=== PATIENT | male | born 1950 | race Caucasian/White ===

== ENCOUNTER → 2020-05-05 11:31 | Outpatient (CLI) | payer MEDICARE, SELFPAY ==
--- NOTE | ~2020-05-05 | XR_ITS ---
EXAMINATION: XR chest 2V EXAM DATE: 05/05/2020 12:26 INDICATION: R05 - Cough . TECHNIQUE: Frontal and lateral projections of the chest obtained and reviewed. There is no prior pepito dy for comparison. FINDINGS: The lungs are clear. There are no pleural effusions. The cardiomediastinal silhouette is within normal limits. There is no pneumothorax suspected. Patient has diffuse idiopathic skeletal h yperostosis (DISH). IMPRESSION: No acute cardiopulmonary findings. Reviewed, dictated and finalized at location A. [employer]
== END ==
PROVIDERS: PCP Internal Medicine; Visit Provider Internal Medicine
DX: R05 Cough (principal)
CPT/HCPCS: 71046

== ENCOUNTER 2020-05-26 08:32 | Outpatient (CLI) | payer MEDICARE, SELFPAY ==
--- NOTE | 2020-05-26 08:38 | ECHO_ITS ---
Patient Info Name: Elroy Garcia Age: 69 years : 1950 Gender: Male Ht: 66 in Wt: 185 lbs BSA: 2.00 m2 HR: 87 bpm BP: 191 / 101 mmHg Technical Quality: Good Exam Date: 05/26/2020 9:08 AM Exam Location: [facility] Patient Status: Outpatient Admit Date: 05/26/2020 Staff Ordering Physician: Yair Monge DO Certified Professional Midwife: Dell Milton RDCS, RT Attending Provider: Yair Monge DO Referring Physician: Saleem BUITRAGO; Exam Type: CA echo doppler color flow Study Info Indications I10 - Essential (primary) hypertension Complete two-dimensional, color flow and Doppler transthoracic echocardiogram is performed. Strain analysis performed. Summary 1. Complete two-dimensional, color flow and Doppler transthoracic echocardiogram is performed. 2. Left ventricular chamber dimension is normal. 3. Left ventricular systolic function is normal, estimated at 60-65%. 4. The left ventricular diastolic function is grade I diastolic dysfunction. 5. E/e' 7 is not elevated. 6. Global longitudinal strain is normal at -17.0%. Left Ventricle E/e' 7 is not elevated. Global longitudinal strain is normal at -17.0%. Left ventricular chamber dimension is normal. Left ventricular systolic function is normal, estimated at 60-65%. The left ventricular diastolic function is grade I diastolic dysfunction. Right Ventricle Right ventricular chamber dimension is normal. Right ventricular systolic function is normal. Left Atria Left atrial chamber dimension is normal. Right Atria Right atrial chamber dimension is normal. Aortic Valve The aortic valve is trileaflet. There is no aortic valve stenosis. There is no aortic valve regurgitation. Pulmonic Valve There is no pulmonic regurgitation. Mitral Valve There is no mitral valve stenosis. There is no mitral valve regurgitation. Tricuspid Valve There is no tricuspid valve regurgitation. Pericardium/Pleural There is no pericardial effusion. Inferior Vena Cava Normal inferior vena cava with >50% collapse upon inspiration consistent with normal right atrial pressure, 5 mmHg. Aorta The aortic root size at the sinus of Valsalva is normal. Left Ventricular Outflow Tract Name Value Normal LVOT 2D LVOT Diameter 1.9 cm LVOT Doppler LVOT Peak Gradient 4 mmHg LVOT Mean Gradient 2 mmHg LVOT VTI 23 cm LVOT VTI/AV VTI Ratio 1.0 LVOT Stroke Volume 63 ml LVOT CO 5.2 l/min LVOT CI 2.6 l/min/m2 Mitral Valve Name Value Normal MV Doppler MV Decel Cidra 437 cm/s2 MV PHT 57 ms MV Area (PHT)
== END 2020-05-26 08:33 | disposition home or self-care (01) ==
PROVIDERS: PCP Internal Medicine; Visit Provider Internal Medicine
DX: R05 Cough (principal); R06.00 Dyspnea, unspecified; I10 Essential (primary) hypertension
CPT/HCPCS: 93306

== ENCOUNTER 2020-11-11 18:48 | Emergency (ER) | payer MEDICARE, SELFPAY ==
--- NOTE | ~2020-11-11 | XR_ITS ---
EXAMINATION: XR shoulder RT min 2V DATE: 11/11/2020 19:07 INDICATION: Right shoulder pain. TECHNIQUE: 4 views of right shoulder were obtained. COMPARISON: None. FINDINGS: Bone alignment is normal. No fracture. There is mild osteoarthritis of glenohumeral joint a nd acromioclavicular joint. IMPRESSION: 1. Mild polyarticular osteoarthritis. Reviewed, dictated and finalized at location A.
[2020-11-11 18:54] VITALS: BP 180/89; PULSE 84; RESP 16; TEMP 36.7; O2SAT 98
--- NOTE | 2020-11-11 19:17 | PC.NURSE ---
pt c/o right shoulder pain worse with movement after slipping on wet grass earlier in the week. pt reports prior injury to right shoulder. has been wearing a shoulder immobilizer but reports no better.
--- NOTE | 2020-11-11 19:33 | ED.UPPEXIN ---
HPI - Extremity Injury (Upper) History of Present Illness HPI narrative: 70 yo male w/ h/o rotator cuff repair presents to the ED c/o a shoulder injury. He reports that he slipped and fell a couple of days ago. He caught himself with his right arm. He has had pain over the anterior and laterla deltoid since that time. The pain limits his ability to abduct and flex the shoulder. He has been using a sling, which helps with the pain. He previously had a rotator cuff repair on the same shoulder. No weakness, numbness, wound. Related Data Home Medications Medication Instructions Recorded Confirmed acetaminophen 650 mg PO Q12H 02/18/19 11/17/20 aspirin 325 mg PO DAILY 02/18/19 11/17/20 cholecalciferol (vitamin D3) 5,000 unit PO DAILY 02/18/19 11/17/20 [Vitamin D3] coenzyme Q10 [CoQ-10] 100 mg PO DAILY 02/18/19 11/17/20 diphenhydramine HCl [Benadryl] 02/18/19 11/17/20 flaxseed oil 1,000 mg PO DAILY 02/18/19 11/17/20 glucosamine sulfate [Glucosamine] mg 02/18/19 11/17/20 loratadine 10 mg PO DAILY 02/18/19 11/17/20 magnesium 200 mg PO DAILY 02/18/19 11/17/20 multivitamin [Multiple Vitamins] tablet 02/18/19 11/17/20 vitamin E 400 unit PO DAILY 02/18/19 11/17/20 omega 3,6,9 combination no.7 92 mg mg PO 10/18/19 11/17/20 (43 mg-22 [id number]) chew tablet Allergies Allergy/AdvReac Type Severity Reaction Status Date / Time Penicillins Allergy Unknown Hives Verified 11/14/20 15:27 Sulfa (Sulfonamide Allergy Unknown Unknown Verified 11/14/20 15:27 Antibiotics) Review of Systems Review of Systems: All systems reviewed & are unremarkable except as noted in HPI and below PMFSH Past Medical History Medical History Asthma Basal cell carcinoma GERD (gastroesophageal reflux disease) Hypertension Obesity Surgical History Surgical History (Updated 11/20/20 @ 16:23 by Elmer Major MD) S/P rotator cuff repair Family History Family History Father Family history of Alzheimer's disease Social History Social History Smoking status: Never smoker Second hand tobacco smoke exposure: No Alcohol intake: current Drinks per week: 5 Substance use: never Gender identity (if verbalized by the patient): Male Exam Const: General: healthy appearing, no acute distress and alert Nutritional Appearance: well nourished Orientation/consciousness: patient oriented x3 HENMT: Head: normal to inspection Neck: Neck: normal visual inspection Chest: Chest palpation & inspection: normal inspection of the chest and no tenderness Resp: Effort & Inspection: normal respiratory effort Auscultation: clear to auscultation bilaterally Cardio: Rate: regular rate Rhythm: regular rhythm Skin: General skin exam: normal color Wounds: no wounds Neuro: General: patient oriented x3, moves all extremities and no focal motor deficits Speech: normal speech Gait exam (Neuro): Normal gait present Other: Motor and sensory intact in RUE Extrem: Other: Tenderness over right anterior deltoid. Pain with flexion, abduction, external rotation of the right shoulder. Course Vital Signs Vital signs: Vital Signs Temperature 36.7 C 11/11/20 18:54 Pulse Rate 84 11/11/20 18:54 Respiratory Rate 16 11/11/20 18:54 Blood Pressure 180/89 H 11/11/20 18:54 Pulse Oximetry 98 11/11/20 18:54 Temperature 36.7 C 11/11/20 18:54 Pulse Rate 74 11/11/20 20:30 Respiratory Rate 16 11/11/20 20:30 Blood Pressure 161/92 H 11/11/20 20:30 Pulse Oximetry 95 11/11/20 20:30 MDM - Extremity Injury (Upper) MDM Narrative Medical decision making narrative: X-ray negative. Exam concerning for rotator cuff injury. Joint stable. Imaging Data Radiologist's impression: ITS Impressions Shoulder X-Ray 11/11/20 19:10 IMPRESSION: 1. Mild polyarti
[2020-11-11 20:30] VITALS: BP 161/92; PULSE 74; RESP 16; O2SAT 95
== END 2020-11-11 20:07 | disposition home or self-care (01) ==
PROVIDERS: Emergency Provider Emergency Medicine; PCP Internal Medicine
DX: S46.001A Unspecified injury of muscle(s) and tendon(s) of the rotator cuff of right shoulder, initial encounter (principal); J45.909 Unspecified asthma, uncomplicated; K21.9 Gastro-esophageal reflux disease without esophagitis; Z85.828 Personal history of other malignant neoplasm of skin; I10 Essential (primary) hypertension; E66.9 Obesity, unspecified; Z68.28 Body mass index [BMI] 28.0-28.9, adult; M19.011 Primary osteoarthritis, right shoulder; Z79.82 Long term (current) use of aspirin; W01.0XXA Fall on same level from slipping, tripping and stumbling without subsequent striking against object, initial encounter
CPT/HCPCS: 73030; 99283

== ENCOUNTER 2020-11-20 07:35 | Outpatient (CLI) | payer MEDICARE, SELFPAY ==
--- NOTE | ~2020-11-20 | MR_ITS ---
EXAMINATION: MR shoulder RT wo con DATE: 11/20/2020 08:41 INDICATION: Right shoulder pain post recent fall TECHNIQUE: Magnetic resonance imaging (MRI) of the right shoulder was performed without intravenous c ontrast. Sequences included axial PD-weighted FS FSE, coronal oblique PD-weighted FS FSE, coronal obl ique T2-weighted FS FSE, sagittal PD-weighted FS FSE, and sagittal T1-weighted SE. COMPARISON: None. FINDINGS: Coracoacromial arch: The acromion undersurface is curved in morphology (type II) with small anterior subacromial spur. Cor acoacromial ligament is normal. Mild to moderate acromioclavicular osteoarthritis. Rotator cuff: Mild supraspinatus and severe infraspinatus tendinopathy with near complete full-thickness tear of clifton th tendons. There appear to be a few intact fibers of the anterior most supraspinatus tendon and post erior most infraspinatus tendons. The tear occurs near the greater tuberosity footplate where there i s residual small amount of patchy frayed tendon material. The medial supraspinatus tear margin is ret racted approximately 3.5 cm medially to nearly the level of the free edge of the labrum. Mild tendino sheldon of the teres minor tendon without discrete tear. Moderate distal subscapularis tendinopathy wit hout discrete tear. Severe fatty atrophy of the teres minor muscle belly. No evident impinging lesion at the quadrilateral space along the course of the axillary nerve. Remainder of the rotator cuff mus culature appears relatively preserved including the supraspinatus and infraspinatus muscle bellies. T here is feathery muscular edema in the distal infraspinatus likely related to the tendon tear and sug gesting a relatively recent injury. Biceps tendon, glenoid labrum and glenohumeral cartilage: Long head of the biceps tendon is normal. Is degenerative tearing at the anteroinferior to inferior g lenoid labrum with small marginal osteophyte at the base of the labrum at the 6:00 position. There is mild degenerative fraying along the free edge of the posterior superior to posterior inferior labrum . Deep partial-thickness cartilage loss with subtle underlying cortical irregularity and minimal suba rticular edema at the anterosuperior aspect of the humeral head. Mild partial-thickness cartilage los s with smooth chondral surface at the cephalad half of the glenoid. Fluid: Physiologic amount of fluid in the glenohumeral joint and biceps tendon sheath. No loose osteochondra l bodies. There is however extension of fluid through the full-thickness rotator cuff tear into the s ubacromial/subdeltoid and subcoracoid bursae. Bones: Mild cephalad subluxation of the humeral head with respect to the glenoid with narrowing of the subac romial space resulting from the full-thickness rotator cuff tear. No fracture or pathologic marrow re placing process. IMPRESSION: 1. Full-thickness tear near the superior and middle facet footplates involving nearly the entire supr aspinatus and infraspinatus tendons but without significant fatty atrophy suggesting recent injury. 2. Severe fatty atrophy of the teres minor muscle belly with mild tendinopathy without discrete tear which of indeterminate etiology with no evident impinging lesion along the course of the axillary ner ve. 3. Moderate subscapularis tendinopathy without discrete tear. 4. Mild glenohumeral osteoarthritis with degenerative tearing at the anteroinferior to inferior labru m and along the free edge of the posterior superior to posterior inferior labrum. 5. Mild to moderate acromioclavicular osteoarthritis. Reviewed, dictated and finalized at location A. IMPRESSION: 1. Full-thickness tear near the superior and middle facet footplates involving nearly the entire supraspinatus and infraspina
== END 2020-11-20 07:36 | disposition home or self-care (01) ==
PROVIDERS: PCP Internal Medicine; Visit Provider Physician Assistant
DX: M19.011 Primary osteoarthritis, right shoulder (principal); S43.491A Other sprain of right shoulder joint, initial encounter; X58.XXXA Exposure to other specified factors, initial encounter
CPT/HCPCS: 73221

== ENCOUNTER 2020-12-20 15:01 | Outpatient (CLI) | payer MEDICARE, SELFPAY ==
--- NOTE | ~2020-12-20 | CT_ITS ---
EXAMINATION: CT shoulder RT wo con DATE: 12/20/2020 15:11 INDICATION: Right shoulder arthropathy presenting with right shoulder pain post recent fall TECHNIQUE: High resolution computed tomography (CT) of the right shoulder was performed without intra venous contrast. Additional sagittal and coronal reconstructions were performed. Automated exposure c ontrol and iterative reconstruction technique were employed. The dose-length product was 466.68 mGy-c m. COMPARISON: Right shoulder MRI dated 11/20/2020 FINDINGS: Again seen is cephalad subluxation of the humeral head with respect to the glenoid with narrowing of the subacromial space consistent with previous noted right rotator cuff tear. No acute fracture. Mild to moderate right acromioclavicular osteoarthritis and mild osteoarthritis at the right glenohumeral joint with small marginal osteophytes about the glenoid. Small subacromial spur. No glenohumeral [place] nt effusion. Again seen is marked fatty atrophy of the right teres minors muscle belly. No other asym metric muscular atrophy of the right shoulder girdle. Moderate to severe lower cervical spondylosis. There are bridging osteophytes at multiple levels in the thoracic spine, consistent with diffuse idio pathic skeletal hyperostosis (DISH). The visualized portions of the right lung are clear. No patholog ically enlarged lymphadenopathy at the right axilla, right hilum or visualized mediastinum. IMPRESSION: 1. Mild glenohumeral osteoarthritis with cephalad subluxation of the humeral head and narrowing of th e subacromial space consistent with previously noted rotator cuff tear. See prior MRI report for furt her detail. 2. Severe fatty atrophy of the teres minor muscle belly which is of indeterminate etiology. 3. Mild to moderate acromioclavicular osteoarthritis. Reviewed, dictated and finalized at location A. IMPRESSION: 1. Mild glenohumeral osteoarthritis with cephalad subluxation of the humeral he ad and narrowing of the subacromial space consistent with previously noted rota tor cuff tear. See prior MRI report for further detail. 2. Severe fatty atrophy of the teres minor muscle belly which is of indetermina te etiology. 3. Mild to moderate acromioclavicular osteoarthritis.
== END 2020-12-20 15:02 | disposition home or self-care (01) ==
LOC: ANHIMG 15:03
PROVIDERS: PCP Internal Medicine; Visit Provider Orthopaedic Surgery
DX: M19.011 Primary osteoarthritis, right shoulder (principal)
CPT/HCPCS: 73200

== ENCOUNTER 2021-01-17 13:51 | Outpatient (CLI) | payer MEDICARE, SELFPAY ==
--- NOTE | 2021-01-17 14:47 | ECG_ITS ---
Measurements Intervals [place] Rate: 73 P: 59 FL: 145 QRS: 17 QRSD: 105 T: 31 QT: 361 QTc: 399 Interpretive Statements SINUS RHYTHM NORMAL ECG Electronically Signed On 01-17-2021 15:18:13 CDT by Chandra Medrano D.O.
[2021-01-17 15:15] LABS: Basophils Absolute Auto 0.1 K/mm3 (0.0-0.1); Basophils Percent Auto 0.7 % (0.2-1.2); Eosinophils Absolute Auto 0.6 K/mm3 (0-0.3); Eosinophils Percent Auto 7.7 % (0-4.4); Hematocrit 51.4 % (42.0-52.0); Hemoglobin 17.7 g/dL (14.0-18.0); Immature Granulocyte Absolute 0.02 K/mm3 (0.00-0.031); Immature Granulocyte Percent A 0.3 % (0-0.5); Lymphocytes Absolute Auto 2.21 K/mm3 (0.9-3.2); Lymphocytes Percent Auto 29.8 % (18.3-44.2); Mean Corpuscular HGB Conc 34.4 g/dl (32-36); Mean Corpuscular Hemoglobin 33.5 pg (26-34); Mean Corpuscular Volume 97.3 fl (80-100); Mean Platelet Volume 9.6 fl (7.4-10.4); Monocytes Absolute Auto 0.7 K/mm3 (0.1-0.6); Monocytes Percent Auto 9.8 % (2.6-8.5); Neutrophils Absolute Auto 3.8 K/mm3 (1.3-6.7); Neutrophils Percent Auto 51.7 % (45.5-73.1); Platelet Count Result 183 k/mm3 (150-375); Red Blood Count 5.28 M/mm3 (4.6-6.20); Red Cell Distribution Width 11.9 % (11.5-14.5); White Blood Count 7.4 K/mm3 (4.5-10.0)
== END 2021-01-17 13:52 | disposition home or self-care (01) ==
PROVIDERS: PCP Internal Medicine; Visit Provider Orthopaedic Surgery
DX: Z01.818 Encounter for other preprocedural examination (principal); M12.811 Other specific arthropathies, not elsewhere classified, right shoulder; I10 Essential (primary) hypertension
CPT/HCPCS: 36415; 85025; 87081; 93005

== ENCOUNTER 2021-02-05 00:35 | Day surgery (SDC) | payer MEDICARE, SELFPAY ==
[2021-01-17 14:12] VITALS: BP 221/113; PULSE 82; RESP 20; TEMP 36.7; O2SAT 95; BMI 31.4
[2021-02-05] VITALS (11 sets, daily range): BP systolic 131–163; BP diastolic 55–82; PULSE 70–116; RESP 14–24; TEMP 36.3–37; O2SAT 91–100
--- NOTE | ~2021-02-05 | XR_ITS ---
XR shoulder RT min 2V DATE: 02/05/2021 16:16 INDICATION: Reverse total shoulder joint replacement TECHNIQUE: 4 portable views of the right shoulder COMPARISON: 12/20/2020 CT right shoulder 11/11/2020 right shoulder FINDINGS: Status post right reverse glenohumeral joint arthroplasty. There is normal alignment at the arthroplasty. No fracture or dislocation is evident. Normal alignment at the acromioclavicular joint . IMPRESSION: Right glenohumeral reverse arthroplasty Reviewed, dictated and finalized at location A.
[2021-02-05] MEDS: ACETAMINOPHEN 500 MG TABLET 1000 MG PO (10:45)
[2021-02-05] MEDS: LACTATED RINGERS 1,000 ML 30 ML IV CONT (11:00)
--- NOTE | 2021-02-05 11:14 | WPDANESEPPF ---
Anes - Initial Pre Proc Eval Procedure: Operation Date: 02/05/21 12:00 Proposed Procedures p Right Reverse Total Shoulder Arthroplasty - Dago Nunez MD Date/Time: 02/05/21 11:14 Surgeon: Dago Nunez MD Pre Op Diagnosis: right rotator cuff arthropathy Patient Data Age: 70 Gender: M Height: 1.68 m Weight: 87.2 kg Last Vital Signs Temp 36.3 C L 02/05/21 10:30 Pulse 70 02/05/21 10:30 Resp 14 02/05/21 10:30 BP 159/78 H 02/05/21 10:30 Pulse Ox 100 02/05/21 10:30 Allergies Allergy/AdvReac Type Severity Reaction Status Date / Time Penicillins Allergy Intermediate Hives, RASH Verified 02/05/21 10:32 Sulfa (Sulfonamide Allergy Intermediate Rash Verified 02/05/21 10:32 Antibiotics) Home Medications Medication Instructions Recorded Confirmed Type cholecalciferol (vitamin D3) 5,000 unit PO DAILY 02/18/19 02/05/21 History [Vitamin D3] coenzyme Q10 [CoQ-10] 100 mg PO DAILY 02/18/19 02/05/21 History diphenhydramine HCl [Benadryl] 25 mg PO BID PRN 02/18/19 02/05/21 History glucosamine sulfate [Glucosamine] 500 mg PO DAILY 02/18/19 02/05/21 History loratadine 10 mg PO DAILY 02/18/19 02/05/21 History multivitamin [Multiple Vitamins] 1 tablet PO DAILY 02/18/19 02/05/21 History vitamin E 400 unit PO DAILY 02/18/19 02/05/21 History omega 3,6,9 combination no.7 92 mg 92 mg PO DAILY 10/18/19 02/05/21 History (43 mg-22 [id number]) chew tablet albuterol sulfate 90 mcg/actuation 2 inh INHALATION Q4-6H PRN #18 g 09/18/20 02/05/21 Rx aerosol inhaler atorvastatin 20 mg PO HS 01/17/21 02/05/21 History azelastine 2 spray INTRANASAL Q12H PRN 01/17/21 02/05/21 History diphenhydramine-acetaminophen 1 tablet PO HS PRN 01/17/21 02/05/21 History [Tylenol PM Extra Strength] fluticasone propionate [Flonase] 2 spray INTRANASAL DAILY 01/17/21 02/05/21 History guaifenesin [Mucinex] 600 mg PO Q12H PRN 01/17/21 02/05/21 History omeprazole 20 mg PO DAILY PRN 01/17/21 02/05/21 History potassium 99 mg PO DAILY 01/17/21 02/05/21 History fexofenadine 180 mg tablet 180 mg PO DAILY 01/19/21 02/05/21 History flaxseed oil 1,000 mg capsule 1,300 mg PO DAILY cap 01/19/21 02/05/21 History losartan 50 mg tablet 50 mg PO DAILY #90 tablet 01/19/21 02/05/21 Rx magnesium 200 mg tablet 400 mg PO DAILY tablet 01/19/21 02/05/21 History methyl inh INTRANASAL 01/19/21 02/02/21 History tnfuakzdyl-dvczwol-jhdwqpi-[place] fir needle oil nasal inhalr propylene glycol 0.6 % eye drops 1 drp EACH EYE DAILY 01/19/21 02/05/21 History montelukast 10 mg tablet 10 mg PO DAILY #90 tablet 02/01/21 02/05/21 Rx Patient hx anesthesia problems: none Family hx anesthesia problems: none Results Review: All pre-operative results and documents have been reviewed as part of the pre-operative evaluation. [facility] Past Medical History Medical History Asthma Basal cell carcinoma GERD (gastroesophageal reflux disease) Hypertension Obesity Surgical History Surgical History S/P rotator cuff repair Family History Family History Father Family history of Alzheimer's disease Social History Social History Smoking status: Never smoker Second hand tobacco smoke exposure: No Alcohol intake: current Drinks per week: 5 Substance use: never Living arrangements: with family Additional living arrangements comments: Gender identity (if verbalized by the patient): Male Spiritual care concerns: No Anes - Eval Final PreProcedure Day of Procedure 02/05/21 11:14 Patient weight: obese Heart: regular rate and rhythm Lungs: clear to auscultation Airway: Mallampati scale class II Neurological: alert and oriented Last oral intake: >/= 8 hours ASA classification: III Emergent: no Anesthetic
[2021-02-05] MEDS: TRANEXAMIC ACID 1,000MG/ISO100 1,000 MG/100 ML BAG 200 MG IVPB (11:44)
--- NOTE | 2021-02-05 11:59 | WPDHPUPDATE1 ---
History and Physical Update Update Date/Time: 02/05/21 11:59 History and Physical has been reviewed, including an updated exam of the patient. There are NO changes in the patient's condition. Risks, benefits, and alternatives have been discussed and questions answered. Patient agrees to proceed with procedure.
[2021-02-05] MEDS: ceFAZolin 2 GM/D5W 50 ML 2 GM/50 ML BAG IVPB ×2 (12:02→20:36)
--- NOTE | 2021-02-05 12:05 | WPDANESPNB ---
Anes - Peripheral Nerve Block Date/Time: 02/05/21 12:05 I have discussed with the patient/family/POA the placement of a peripheral nerve block for post-operative pain management, including associated risks, benefits, complications, and side effects. Alternative methods of post-operative analgesia were detailed. Questions were solicited and answers provided to the satisfaction of the patient/family/POA. Time-Out: A pre-procedural Time-Out was completed immediately before starting the procedure and confirmed: Patient Identification, Site, Procedure, Patient Position and the Availability of Requisite Equipment. Clinical Indications: Acute post-operative pain management requested by the operative surgeon. Nerve Block Insertion Note Anes-nerve block: interscalene right Patient position: supine Skin prep: chlorhexidine Needle: 22 gauge, stimulating, insulated echogenic needle. Needle length: 50 mm Technique: ultrasound Injectate: bupivacaine 0.5% with epi 5 mcg/ml (30cc no epi) and dexamethasone (mg) (8) Observations: tolerated well Complications: none Procedure start time:: 1155 Procedure end time:: 1202
[2021-02-05] MEDS: VANCOMYCIN HCL 1,000 MG VIAL 1000 MG TOPICAL (14:47)
--- NOTE | 2021-02-05 16:02 | W.PM.PROC2 ---
Procedure Note - Detailed Date of Procedure 02/05/21 Pre-op Diagnosis right rotator cuff arthropathy Post-op Diagnosis same Procedure Performed Right reverse total shoulder arthroplasty. Surgeon Dago Nunez MD Remote Control Mirror Installer Tammy Espana PA-C Anesthesia general and regional Findings Massive, chronic rotator cuff tear. Minimal glenoid deformity. Excellent bone quality. Description of Procedure The patient was given an interscalene block in the preoperative area. Preoperative antibiotics were given. The patient was transferred to the operating room and a general anesthetic was administered. The beach chair position was used at 40 degrees. All bony prominences were padded. The head was carefully stabilized on the [facility] head gauge unit operator. A sterile prep and drape was performed in the usual manner with ChloraPrep. A longitudinal incision was created at the anterior shoulder just lateral to the deltopectoral interval. Careful dissection was performed to expose the interval and protect the cephalic vein. The vein was retracted medially. The upper border of the pectoralis was released. Anterior circumflex vessel branches were suture ligated. The biceps was tenodesed. A subscapularis tenotomy was performed. The inferior capsule was released, exposing the humeral head. Osteophytes were removed. Care was taken to stay on bone to protect the axillary nerve. The anatomic head cut was taken with the oscillating saw. The broach was inserted. The neck anteversion and inclination were carefully assessed. The cut protector was placed, and attention was turned to the glenoid. Retractors were placed. Releases were carried out for exposure. The subscapularis was mobilized, the inferior capsule and long head of triceps released, and the superior and middle glenohumeral ligaments released as well. Labral tissue was resected as needed. The guide pin was placed at the center of the glenoid. Minimal reaming was used to accomplish a flat surface without violating the subchondral bone. Slight version correction according to preoperative templating (anteversion and inferior tilt). The boss, and central screw were drilled. The real component impacted and the central screw drilled and placed. Supplemental locking screws were placed superiorly and inferiorly. The glenosphere was impacted into the taper. The humeral components were trialed. The real humeral stem and tray, and insert were impacted into position. The shoulder was copiously irrigated periodically with pulsatile lavage. 1 g of vancomycin powder placed in the wound. 30 mL of anesthetic cocktail injected in the periarticular tissues. The shoulder was reduced and stability confirmed. The subscapularis was repaired with multiple 5. Ethibond suture. The biceps tenodesis was incorporated with the pectoralis tendon repair. The deltopectoral space was reapproximated with number 2 Vicryl. The remained tissue was closed with 0 Quill and 2-0 Quill running suture and steri-strips. A sterile dressing and shoulder immobilizer was placed. The patient was transferred to the recovery room. Physician obstetric assistant, Tammy Espana PA-C, required for surgery; including patient positioning, draping, tissue retraction, maintaining instrument position, wound closure, and dressing placement. Implants Shoulder Innovations; reverse shoulder glenoid base plate 24 mm angle 0? length 15 mm. Offset glenosphere 33 mm diameter eccentricity 0 offset +6 mm. Humeral short stem 28 mm x 6 mm size 0. Neutral humeral bearing diameter 33 mm lateral 0 mm angle 0?. Humeral tray diameter 38 mm offset 0 mm. Estimated Blood Loss 150 Drains No Packing No Pathology none sent Complications No immediate complications Condition stable Disposition PACU
--- NOTE | 2021-02-05 16:42 | SUR.PHASEI ---
1997 sbar faxed floor notified
--- NOTE | 2021-02-05 17:08 | PC.NURSE ---
This patient, Elroy Garcia, was admitted to Medical Room 253-01. Patient/family oriented to hospital policies and general routines including ID bracelet, bed and alarms, visiting hours, pain management, procedures, bathroom and other care routines, personal items, smoking policy, room service/diet, and visiting hours. Information on how to activate the Rapid Response Team has been discussed. Patient/Family are encouraged to report perceived risks to care and to ask questions if they do not understand what they are told or what they should do.
[2021-02-05] MEDS: ATORVASTATIN 20 MG TABLET PO (20:36)
[2021-02-06 00:11] VITALS: BP 107/57; PULSE 102; RESP 18; TEMP 37; O2SAT 93
[2021-02-06] MEDS: ASPIRIN 81 MG ENTERIC TABLET PO (04:19)
[2021-02-06] MEDS: ceFAZolin 2 GM/D5W 50 ML 2 GM/50 ML BAG IVPB ×2 (04:19→11:12)
[2021-02-06 05:06] VITALS: BP 135/71; PULSE 100; RESP 16; TEMP 36.9; O2SAT 93
[2021-02-06] MEDS: LORATADINE 10 MG TABLET PO (08:29)
[2021-02-06] MEDS: oxyCODONE HCL (*CRX) 5 MG TAB IR PO (08:29)
[2021-02-06] MEDS: MONTELUKAST SODIUM 10 MG TABLET PO (08:29)
[2021-02-06] MEDS: MAGNESIUM OXIDE 400 MG TABLET PO (08:29)
[2021-02-06] MEDS: LOSARTAN POTASSIUM 50 MG TABLET PO (08:29)
[2021-02-06 09:46] VITALS: BP 119/66; PULSE 100; RESP 16; TEMP 36.5; O2SAT 95
== END 2021-02-06 12:27 | disposition home or self-care (01) ==
LOC: ANHSURGERY 10:11 → ANH2MED 16:53
PROVIDERS: PCP Internal Medicine; Visit Provider Orthopaedic Surgery
PROC: (CPT 23472; principal; 2021-02-05 12:00)
DX: M12.811 Other specific arthropathies, not elsewhere classified, right shoulder (principal); M75.121 Complete rotator cuff tear or rupture of right shoulder, not specified as traumatic; M21.921 Unspecified acquired deformity of right upper arm; G89.18 Other acute postprocedural pain; I10 Essential (primary) hypertension; J45.909 Unspecified asthma, uncomplicated; K21.9 Gastro-esophageal reflux disease without esophagitis; E66.9 Obesity, unspecified; Z68.31 Body mass index [BMI] 31.0-31.9, adult; Z79.51 Long term (current) use of inhaled steroids; Z85.828 Personal history of other malignant neoplasm of skin; Z88.0 Allergy status to penicillin; Z88.2 Allergy status to sulfonamides
CPT/HCPCS: 23472; 64415; 36415; 73030; 86850; 86900; 86901; 97161; 97165; 97535; A4565; A9270; J0131; J0171; J0330; J0690; J1100; J1885; J2250; J2270; J2405; J2704; J2795; J3010; J3370; J7120

== ENCOUNTER → 2021-03-05 07:57 | Outpatient (CLI) | payer MEDICARE, SELFPAY ==
--- NOTE | 2021-03-20 14:35 | WPDSLEEPSTUD ---
Sleep Study Date of Study: 03/05/21 <Deedee Shen DO - Last Filed: 03/20/21 17:56> Ordering Provider: Yair Monge DO <Deedee Shen DO - Last Filed: 03/20/21 17:56> Interpreting Physician: Deedee Shen DO <Deedee Shen DO - Last Filed: 03/20/21 17:56> Sleep Study Type: Split Polysomnogram <Deedee Shen DO - Last Filed: 03/20/21 17:56> Height: 1.68 m <Deedee Shen DO - Last Filed: 03/20/21 17:56> Weight: 87.09 kg <Deedee Shen DO - Last Filed: 03/20/21 17:56> Body Mass Index: 30.9 <Deedee Shen DO - Last Filed: 03/20/21 17:56> Neck Circumference (inches): 16 <Deedee Shen DO - Last Filed: 03/20/21 17:56> [place]: 11 <Deedee Shen DO - Last Filed: 03/20/21 17:56> Reason for Sleep Study Unrefreshing sleep <Deedee Shen DO - Last Filed: 03/20/21 17:56> Sleep History The patient is a 70-year-old male with asthma, GERD, hypertension and obesity that had a sleep study ordered by his primary care physician for unrefreshing sleep, witnessed apneas and daytime hypersomnia. The patient states that he occasionally awakens from sleep short of breath. He rarely awakens at night with heartburn, belching or cough. He frequently snores loud enough that others complain. He frequently has trouble sleeping when he has a cold. He rarely wakes up gasping for air throughout the night. He occasionally has breathing problems at night observed by others. He rarely sweats excessively at night. He rarely notices heart palpitations or irregular heartbeats during the night. He rarely falls asleep during the day but never while driving. He denies sleep paralysis and cataplexy. He rarely experiences vivid dreamlike scenes upon awakening or falling asleep. He denies having nightmares. He occasionally has thoughts racing through his mind. He denies feeling sad or depressed. He rarely has anxiety. He occasionally notices parts of his body jerk. He rarely kicks during the night. He rarely experiences crawling and aching feelings in his legs but often has leg pain during the night. He rarely grinds his teeth at night and never awakens with morning jaw pain. He is really bothered by pain during the day and rarely awakened by pain during the night. He occasionally wakes up feeling stiff in the morning with sore and achy muscles. He goes to bed at 11:00 p.m. on weekdays and midnight on weekends. It takes him about an hour to fall asleep. He wakes up 3 times per night to urinate. When he awakens, he will use the restroom, and try to go back to sleep. If he cannot fall back asleep, he will watch television or use his iPad. It can take him anywhere between 30 minutes to a few hours to fall back asleep. He wakes up at 6:00 a.m. on both weekdays and weekends. He typically gets between 3 and 4 hours of sleep per night. He will stay in bed for 30 minutes after awakening in morning. He currently lives with his . He does not consume any caffeinated beverages within 2 hours of bedtime. He does not engage in physical exercise before bedtime. He will read and watch television before falling asleep. He will rarely take a nap in the afternoon or the evening. The patient will drink 1 decaffeinated coffee and tea per day. He will drink 1 alcoholic beverage per day. He denies tobacco and recreational drug use. <Deedee Shen DO - Last Filed: 03/20/21 17:56> [facility] Past Medical History Medical History: Medical History Asthma Basal cell carcinoma GERD (gastroesophageal reflux disease) Hypertension Obesity <Deedee Shen DO - Last Filed: 03/20/21 17:56> Surgical History Surgical History: Surgical History S/P rotator cuff repair <Deedee Shen, - Last Filed: 1
[2021-03-20 16:33] VITALS: BMI 30.9
== END ==
PROVIDERS: PCP Internal Medicine; Visit Provider Internal Medicine
DX: G47.30 Sleep apnea, unspecified (principal); G47.31 Primary central sleep apnea
CPT/HCPCS: 95811

== ENCOUNTER 2021-04-11 07:48 | Outpatient (CLI) | payer MEDICARE, SELFPAY ==
--- NOTE | 2021-04-24 11:43 | WPDSLEEPSTUD ---
Sleep Study Date of Study: 04/11/21 Ordering Provider: Yair Monge DO Interpreting Physician: Janette Merida MD Sleep Study Type: ASV Height: 1.68 m Weight: 89.358 kg Body Mass Index: 31.8 Neck Circumference (inches): 18 [place]: 3 Reason for Sleep Study Split night sleep study 02/23/2021 showing primary central sleep apnea with an AHI 82.9, central apnea index 56.1. ON the initial study, he was studied on CPAP 5 and BPAP up to 20/16 without an optimal pressure. He presents now for an ASV titration. Sleep History Elroy Garcia is a 70-year-old male with asthma, GERD, hypertension and obesity with a positive split night study Mar 05, 2021 with severe central sleep apnea. This was ordered for unrefreshing sleep, witnessed apneas and daytime hypersomnia. He has had polycythemia in the past. The patient states that he occasionally awakens from sleep short of breath. He rarely awakens at night with heartburn, belching or cough. He frequently snores loud enough that others complain. He frequently has trouble sleeping when he has a cold. He rarely wakes up gasping for air throughout the night. He occasionally has breathing problems at night observed by others. He rarely sweats excessively at night. He rarely notices heart palpitations or irregular heartbeats during the night. He rarely falls asleep during the day but never while driving. He denies feeling weak with strong emotion or feeling paralyxed on waking or falling asleep. He rarely experiences vivid dreamlike scenes upon awakening or falling asleep. He denies having nightmares. He occasionally has thoughts racing through his mind. He denies feeling sad or depressed. He rarely has anxiety. He occasionally notices parts of his body jerk. He rarely kicks during the night. He rarely experiences crawling and aching feelings in his legs but often has leg pain during the night. He rarely grinds his teeth at night and never awakens with morning jaw pain. He is really bothered by pain during the day and rarely awakened by pain during the night. He occasionally wakes up feeling stiff in the morning with sore and achy muscles. He goes to bed at 11:00 p.m. on weekdays and midnight on weekends. It takes him about an hour to fall asleep. He wakes up 3 times per night to urinate. When he awakens, he will use the restroom, and try to go back to sleep. If he cannot fall back asleep, he will watch television or use his iPad. It can take him anywhere between 30 minutes to a few hours to fall back asleep. He wakes up at 6:00 a.m. on both weekdays and weekends. He typically gets between 3 and 4 hours of sleep per night. He will stay in bed for 30 minutes after awakening in morning. He currently lives with his . He does not consume any caffeinated beverages within 2 hours of bedtime. He does not engage in physical exercise before bedtime. He will read and watch television before falling asleep. He will rarely take a nap in the afternoon or the evening. Habits: The patient will drink 1 decaffeinated coffee and tea per day. Alcohol: 1 alcoholic beverage per day. No tobacco and recreational drug use. [facility] Past Medical History Medical History (Updated 04/24/21 @ 12:52 by Janette Merida MD) Asthma Basal cell carcinoma Central sleep apnea GERD (gastroesophageal reflux disease) Hypertension Obesity Surgical History Surgical History S/P rotator cuff repair Family History Family History Father Family history of Alzheimer's disease Social History Social History Smoking status: Never smoker Second hand tobacco smoke exposure: No Alcohol intake: current Drinks per week: 10 Substance use: never Substance use type: does not use Additional living arrangements comments: Gender id
[2021-04-24 12:57] VITALS: BMI 31.8
== END 2021-04-12 06:56 | disposition home or self-care (01) ==
LOC: ANHCSM 07:50
PROVIDERS: PCP Internal Medicine; Visit Provider Internal Medicine
DX: G47.31 Primary central sleep apnea (principal)
CPT/HCPCS: 95811

== ENCOUNTER 2023-04-30 14:25 | Outpatient (CLI) | payer MEDICARE, SELFPAY ==
--- NOTE | ~2023-04-30 | CT_ITS ---
EXAMINATION:CT diagnostic chest wo con DATE: 04/30/2023 14:19 INDICATION: Unspecified asthma, uncomplicated. TECHNIQUE: Computed tomography (CT) of the chest was performed without intravenous contrast. Automate d exposure control and iterative reconstruction technique were employed. The dose-length product (DLP ) was 400.91 mGy-cm. COMPARISON: None. FINDINGS: The lungs demonstrate mild atelectasis. No pleural effusion. The heart size is normal. Ther e are coronary artery calcifications. No pericardial effusion. There is bilateral gynecomastia. There is diffuse hepatic steatosis. There is mild thoracic spondylosis. There are bridging endplate osteop hytes at multiple levels in the spine, consistent with diffuse idiopathic skeletal hyperostosis (DISH ). There is a right shoulder arthroplasty. IMPRESSION: 1. Mild atelectasis in the lungs. Reviewed, dictated and finalized at location E. [facility]
--- NOTE | 2023-05-01 14:00 | WPDPFTINT ---
PFT Procedure Performed PFT Procedure Performed Spirometry with Pre/Post Bronchodilator Plethysmography (Lung Vol) Diffusing Cap (DLCO) Flow Vol Loop PFT Interpretation Lung volumes were measured with the body plethysmography method. Lung volumes are unremarkable. Spirometry showed normal expiratory flow rates and a normal FEV1 to FVC ratio of 64%. Following administration of a bronchodilator there was no significant increase in expiratory flow rates. Lung diffusion capacity within the normal range at 93% predicted. The flow volume loop is consistent with mild obstructive airway disease. Impression: Mild obstructive airway disease with no response to bronchodilators on this testing. Lung diffusion capacity within the normal range. Pulmonary function tests (PFTs) were interpreted based on the ERS/ATS guidelines published in 2021. Pulmonary Function Tests play a crucial role in evaluating respiratory function and offering insights into respiratory physiology. However, they may not always accurately diagnose specific clinical conditions. Similarly, normal PFTs results do not necessarily rule out the presence of a lung disease or condition. Therefore, the diagnostic utility of PFTs should be approached with caution, as the results in isolation do not yield absolute determinations.
== END 2023-04-30 14:26 | disposition home or self-care (01) ==
PROVIDERS: PCP Internal Medicine; Visit Provider Physician Assistant
DX: J45.909 Unspecified asthma, uncomplicated (principal)
CPT/HCPCS: 36415; 71250; 82785; 86003; 94060; 94726; 94729

== ENCOUNTER 2024-05-31 03:33 | Day surgery (SDC) | payer MEDICARE, SELFPAY ==
[2024-05-24 10:55] VITALS: BMI 27.4
--- OUTSIDE RECORDS SUMMARY | 2024-05-31 03:36 | XMS_ITS | Encounter Summary ---
Author Organization [facility] Address [address] [place] [address] Care Team Providers Care Crime Scene Specialist Name Role Phone Robin Roe MD Primary Care Provider [phone] Encounter Details Date Type Department Care Team (Late st Contact Info) Description 02/19/2008 Outpatient Historical [facility] Young Carrasco MD [address] [place] [address] [place] [id number] Social History Tobacco Use Types Packs/Day Years Used Date Smoking Tobacco: Never Alcohol Use Standard Drinks/Week Comments No 0 (1 standard drink = 0.6 oz pur e alcohol) Sex and Gender Information Value Date Recorded Sex Assigned at Not on file 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
--- OUTSIDE RECORDS SUMMARY | 2024-05-31 03:36 | XMS_ITS | Referral Summary ---
Author Organization [facility] Address [address] [place] [address] Care Team Providers Care Chief Console Operator Name Role Phone Yair Monge MD Primary Care Provider [phone] Allergies Active Allergy Reactions Criticality Noted Date Comments Penicillins Hives,Itching,Rash,R ednes s,Swelling High 09/05/1969 Sulfa (Sulfonamide Antibiotics) Hives,Itching,Rash High 09/05/1969 Medications No known medications Active Problems No known active problems Social History Tobacco Use Types Packs/Day Years Used Date Smoking Tobacco: Never Assessed Sex and Gender Information Value Date Recorded Sex Assigned at Not on file 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
--- OUTSIDE RECORDS SUMMARY | 2024-05-31 03:36 | XMS_ITS | Encounter Summary ---
Author Organization [facility] Address 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
--- OUTSIDE RECORDS SUMMARY | 2024-05-31 03:36 | XMS_ITS | Encounter Summary ---
Author Organization [facility] Address 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
--- OUTSIDE RECORDS SUMMARY | 2024-05-31 03:36 | XMS_ITS | Encounter Summary ---
Author Organization [facility] Address 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
--- OUTSIDE RECORDS SUMMARY | 2024-05-31 03:36 | XMS_ITS | Encounter Summary ---
Author Organization [facility] Address 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 ALTERNATIVE PHONE NUMBER: [phone] work/ [phone] SECTION 1: REQUESTED ACTION loly 06/11/07 at 10:01 am: MEDICATION REQUEST: Pt not sure if you want to continue him on Vytorin MEDICATION REQUEST: Patient requests a refill. Needs a 90 script mailed to him for his mail order pharmacy. DOCTOR`S RESPONSE: liudmila 06/11/07 at 10:04 am change to lipitor MEDICATIONS: LIPITOR ORAL TABLET 40 MG, 1 Every Day, 90 Dispensed, 2 Fills, status: NEW PRESCRIPTION, 06/11/2007. FINAL ACTION: loly 06/11/07 at 04:10 pm Mailing new script to pt. Left message on patient`s recorder or with a family member 06/11/2007 at 04:12 pm. Electronically Signed by: Joy Ernst on June documented in this encounter Plan of Treatment Not on file documented as of this encounter Visit Diagnoses Not on filedocumented in this encounter Care Teams Aircraft Captain Relationship Specialty Start Date End Date Robin Roe MD PCP - General 09/14/07 08/03/18 documented as of this encounter
--- OUTSIDE RECORDS SUMMARY | 2024-05-31 03:36 | XMS_ITS | Encounter Summary ---
Author Organization [facility] Address 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 Sex Male 5:24 AM TYPER Gender Identity Not on file Sexual Orientation Not on file documented as of this encounter Last Filed Vital Signs Vital Sign Reading Time Taken Comments Blood Pressure 118/78 08/20/2006 1:15 PM CDT Pulse - - Temperature - - Respiratory Rate - - Oxygen Saturation - - Inhaled Oxygen Concentration - - Weight 79.4 kg (175 lb) 08/20/2006 1:15 PM CDT Height - - Body Mass Index - - documented in this encounter Plan of Treatment Not on file documented as of this encounter Visit Diagnoses Not on filedocumented in this encounter Care Teams Leather Stitcher Relationship Specialty Start Date End Date Robin Roe MD PCP - General 09/14/07 08/03/18 documented as of this encounter
--- OUTSIDE RECORDS SUMMARY | 2024-05-31 03:36 | XMS_ITS | Encounter Summary ---
Author Organization [facility] Address 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 HISTORY: HISTORY: 272.4-HYPERLIPIDEMIA The patient is tolerating the medications. 602.9-OTHER DISORDERS OF PROSTATE stable 790.5-ABNORMAL LIVER ENZYMES The patient's symptoms are better. PHYSICAL EXAMINATION: CONSTITUTIONAL: GENERAL APPEARANCE: Healthy appearing patient in no distress. NECK/THYROID: Trachea midline. No thyroid enlargement, tenderness, or mass. No supraclavicular or cervical adenopathy. RESPIRATORY: Clear to auscultation and percussion. Normal respiratory effort. CARDIOVASCULAR: CARDIAC: Regular rhythm. No murmurs, rubs, or gallops. ARTERIAL: Aortic pulses of normal amplitude with no bruits. EDEMA/VARICOSITIES OF EXTREMITIES: No edema or varicosities. GASTROINTESTINAL: ABDOMEN: Soft, non-tender, without masses. Bowel sounds active. LIVER/SPLEEN/KIDNEY: No hepatosplenomegaly, tenderness or nodularity. Kidneys not palpable. ASSESSMENT/PLAN: 272.4-HYPERLIPIDEMIA cont med 602.9-OTHER DISORDERS OF PROSTATE recheck at fu recheck psa 790.5-ABNORMAL LIVER ENZYMES improved LAB ORDERS: 6 mo Order number: [id number] Test Ordered: COMPREHENSIVE METABOLIC PANEL W/ GLOMERULAR FILTRATION RATE, ESTIMATED (EGFR) 61012 Order number: [id number] Test Ordered: LIPID PANEL 7600 Order number: [id number] Test Ordered: PSA 5363 RETURN VISIT : Patient instructed to return in 6 months. Electronically Signed by: Robin Roe MD on Sunday, August 21, 2005 documented in this encounter Plan of Treatment Not on file documented as of this encounter Visit Diagnoses Not on filedocumented in this encounter Care Teams Bone Puller Relationship Specialty Start Date End Date Robin Roe MD PCP - General 09/14/07 08/03/18 documented as of this encounter
--- OUTSIDE RECORDS SUMMARY | 2024-05-31 03:36 | XMS_ITS | Encounter Summary ---
Author Organization [facility] Address 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
--- OUTSIDE RECORDS SUMMARY | 2024-05-31 03:36 | XMS_ITS | Patient Health Record ---
Author Organization [employer] Address [address] [facility] [address]. [address] [place] [address] Care Team Providers Care Ammonium Hydroxide Operator Name Role Phone Yair Monge DO Primary Care Provider Young Garcias Unavailable [phone] Reason For Referral No Information Plan Of Treatment No Information Insurance Providers Payer Name Payer Address Payer Phone Subscriber Number Group Number Insured Name Patient Relationship to Insured Coverage Start Date Coverage End Date Be Rule [facility] [address] [address] [place] [address] [phone] [id number] Elroy Garcia Self - patient is the insured
--- OUTSIDE RECORDS SUMMARY | 2024-05-31 03:36 | XMS_ITS | Encounter Summary ---
Author Organization [facility] Address 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 Gender Identity Not on file Sexual Orientation Not on file documented as of this encounter Last Filed Vital Signs Vital Sign Reading Time Taken Comments Blood Pressure 120/70 08/21/2005 2:00 PM CDT Pulse - - Temperature - - Respiratory Rate - - Oxygen Saturation - - Inhaled Oxygen Concentration - - Weight 79.4 kg (175 lb) 08/21/2005 2:00 PM CDT Height - - Body Mass Index - - documented in this encounter Plan of Treatment Not on file documented as of this encounter Visit Diagnoses Not on filedocumented in this encounter Care Teams Family Practice Nurse Practitioner Relationship Specialty Start Date End Date Robin Roe MD PCP - General 09/14/07 08/03/18 documented as of this encounter
--- OUTSIDE RECORDS SUMMARY | 2024-05-31 03:36 | XMS_ITS | Encounter Summary ---
Author Organization [facility] Address 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 Gender Identity Not on file Sexual Orientation Not on file documented as of this encounter Last Filed Vital Signs Vital Sign Reading Time Taken Comments Blood Pressure 110/70 05/22/2005 2:15 PM HOME APPLIANCE INSTALLER Pulse - - Temperature - - Respiratory Rate - - Oxygen Saturation - - Inhaled Oxygen Concentration - - Weight 80.7 kg (178 lb) 05/22/2005 2:15 PM HOME APPLIANCE INSTALLER Height - - Body Mass Index - - documented in this encounter Plan of Treatment Not on file documented as of this encounter Visit Diagnoses Not on filedocumented in this encounter Care Teams Certified Medical Asst Relationship Specialty Start Date End Date Robin Roe MD PCP - General 09/14/07 08/03/18 documented as of this encounter
--- OUTSIDE RECORDS SUMMARY | 2024-05-31 03:36 | XMS_ITS | Encounter Summary ---
Author Organization [facility] Address [address] [place] [address] Care Team Providers Care Tube Drawing Supervisor Name Role Phone Robin Roe MD Primary Care Provider Encounter Details Date Type Department Care Team (Late st Contact Info) Description 03/18/2007 Outpatient [facility] Internal Medicine [address] [address] Robin Roe MD [address] [place] [phone] Social History Tobacco Use Types Packs/Day Years Used Date Smoking Tobacco: Never Assessed Sex and Gender Information Value Date Recorded Sex Assigned at Not on file Legal Sex Male 5:24 AM CARE NURSE RN Gender Identity Not on file Sexual Orientation Not on file documented as of this encounter Plan of Treatment Not on file documented as of this encounter Visit Diagnoses Not on filedocumented in this encounter Care Teams Tube Drawing Supervisor Relationship Specialty Start Date End Date Robin Roe MD PCP - General 09/14/07 08/03/18 documented as of this encounter
--- OUTSIDE RECORDS SUMMARY | 2024-05-31 03:36 | XMS_ITS | Clinical Summary ---
Author Organization [facility] Address [address] [place] [address] Care Team Providers Care Cover Mat Machine Operator Name Role Phone Yair Monge MD Primary Care Provider [phone] Allergies Active Allergy Reactions Criticality Noted Date Comments Penicillins Hives,Itching,Rash,R ednes s,Swelling High 09/05/1969 Sulfa (Sulfonamide Antibiotics) Hives,Itching,Rash High 09/05/1969 Medications No known medications Active Problems No known active problems Social History Tobacco Use Types Packs/Day Years Used Date Smoking Tobacco: Never Assessed Sex and Gender Information Value Date Recorded Sex Assigned at Not on file 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 Gender Identity Not on file Sexual Orientation Not on file Obstetrics History Plan of Treatment Health Maintenance Due Date Last Done Comments Colon Cancer Screening-Colonoscopy 1949 Depression Screening 1949 Fall Risk Assessment 1950 Hepatitis C Screening 1949 Hepatitis B Screening 09/14/1967 Abdominal Aortic Aneurysm (A AA) Screen 2014 Well Visit 65+ 2014 Covid-19 Vaccine (6 - 4-2 5 season) 2023 12/20/2021, 07/18/2021, 01/26/2021, Additional history exists Influenza Vaccine (#1) 2023 2, 01/05/2021, 01/11/2020, Additional history exists DTaP/Tdap/Td Vaccine (4 - Td or Tdap) 01/04/2026 01/05/2016, 01/05/2016, 01/21/2014, Additional history exists Pneumococcal vaccine 65+ Completed 017, 11/22/2014, 04/07/2003 Zoster Vaccine Completed 09/02/2018, 07/08/2018 Insurance MEDICARE Member Subscriber Plan / Payer (Ef fective 2014-Present) Name:Elroy Garcia Member ID:[id number] Relation to Subscriber:Self Name:Elroy Garcia Subscriber ID:[id number] Payer ID:[id number] Group ID:Not on file Type:MEDICARE TRADITIONAL Address: [place] [phone] [employer] Care Teams Cover Mat Machine Operator Relationship Specialty Start Date End Date Yair Monge MD [address] [facility] [address] [place] [address] PCP - General Internal Medicine 02/27/22
--- OUTSIDE RECORDS SUMMARY | 2024-05-31 03:36 | XMS_ITS | Encounter Summary ---
Author Organization [facility] Address 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 HISTORY: HISTORY: 211.3-COLON POLYP(S) The colon polyps are stable. 272.4-HYPERLIPIDEMIA The patient`s most recent labs reviewed. The patient is tolerating the medications. 790.5-ABNORMAL LIVER ENZYMES The patient's symptoms are better. PHYSICAL EXAMINATION: CONSTITUTIONAL: GENERAL APPEARANCE: Healthy appearing patient in no distress. NECK/THYROID: Trachea midline. No thyroid enlargement, tenderness, or mass. No supraclavicular or cervical adenopathy. RESPIRATORY: Clear to auscultation and percussion. Normal respiratory effort. CARDIOVASCULAR: CARDIAC: Regular rhythm. No murmurs, rubs, or gallops. ARTERIAL: No aortic bruits. EDEMA/VARICOSITIES OF EXTREMITIES: No edema or varicosities. GASTROINTESTINAL: ABDOMEN: Soft, non-tender, without masses. Bowel sounds active. LIVER/SPLEEN/KIDNEY: No hepatosplenomegaly, tenderness or nodularity. Kidneys not palpable. ASSESSMENT/PLAN: 211.3-COLON POLYP(S) reviewed, repeat colonoscopy in 1 year 272.4-HYPERLIPIDEMIA cont med, enc diet and exercise MEDICATIONS: VYTORIN ORAL TABLET 10-40 MG, 1 Every Day, 90 Dispensed, 3 Fills, 90 Duration/Days Supply, status: NEW PRESCRIPTION, 08/20/2006. LAB ORDERS: 6 mo Order number: [id number] Test Ordered: COMPREHENSIVE METABOLIC PANEL & GFR 1112 Order number: [id number] Test Ordered: LIPID PANEL 1078 790.5-ABNORMAL LIVER ENZYMES stable RETURN VISIT : Patient instructed to return in 6 months. Electronically Signed by: Robin Roe MD on Sunday, August 20, 2006 documented in this encounter Plan of Treatment Not on file documented as of this encounter Visit Diagnoses Not on filedocumented in this encounter Care Teams Deflector Operator Relationship Specialty Start Date End Date Robin Roe MD PCP - General 09/14/07 08/03/18 documented as of this encounter
--- OUTSIDE RECORDS SUMMARY | 2024-05-31 03:37 | XMS_ITS | Clinical Summary ---
Author Organization [facility] Address [address] [facility] [place] [address] Care Team Providers Care Cable Placer Name Role Phone Unavailable Primary Care Provider Unavailabl e Source Comments [facility] [employer],non-owned Affiliates and Associated Physician Practices is amultiple site organization consisting of ambulatory clinics and hospital sitesin [place], [place], [place] and [place]. This disclosure is being madepursuant to the Care Everywhere program and may not contain all information available regarding this patient. Last updated 17.[facility] [employer] Social History Tobacco Use Types Packs/Day Years Used Date Smoking Tobacco: Never Assessed Sex and Gender Information Value Date Recorded Sex Assigned at Not on file Gender Identity Not on file Sexual Orientation Not on file Plan of Treatment Health Maintenance Due Date Last Done Comments COLOGUARD (AGES 45-75) - COL ON CA SCREENING 1949 COLON MONITORING 1949 COLONOSCOPY - COLON CA SCREENING 1949 CT COLONOGRAPHY - COLON CA SCREENING 1949 Colorectal Cancer Screening 1949 FIT - COLON CA SCREENING 1949 FLEX SIG - COLON CA SCREENING 1949 LIPID TESTING 1949 HEPATITIS C SCREENING 09/09/1967 DTAP/TDAP/TD VACCINES (1 - Tdap) 1968 PNEUMOCOCCAL VACCINE 50+ (1 of 1 - PCV) 09/14/1999 ZOSTER VACCINE (1 of 2) 09/14/1999 COVID-19 VACCINE ( - 2023-2 5 season) 2023 INFLUENZA VACCINE (#1) 2023 DEPRESSION SCREENING 04/07/2024 MEDICARE AWV CALENDAR YEAR 2024 Respiratory Syncytial Virus (RSV) Vaccine Pt: or over 60 yrs (1 - 1-dose 75+ series) 2024 HEPATITIS B VACCINE Aged Out No longe r eligible based on patient's age to complete this topic HIB VACCINE Aged Out No longer eligi ble based on patient's age to complete this topic HPV VACCINE Aged Out No longer eligi ble based on patient's age to complete this topic MENINGOCOCCAL (Group B) VACCINE Aged Out No longer eligible based on patient's age to complete this topic MENINGOCOCCAL VACCINE Aged Out No christina hilda eligible based on patient's age to complete this topic Elroy Gacria Personal/Famil y Self 1950 [address] [place] [address]
--- OUTSIDE RECORDS SUMMARY | 2024-05-31 03:37 | XMS_ITS | Patient Health Summary ---
Author Organization [facility] Address [address] [place] [address] Care Team Providers Care Card Processing Clerk Name Role Phone Unavailable Primary Care Provider Unavailabl e Note from [facility],non-owned Affiliates and Associated Physician Practices is amultiple site organization consisting of ambulatory clinics and hospital sitesin [place], [place], [place] and [place]. This disclosure is being madepursuant to the Care Everywhere program and may not contain all information available regarding this patient. Last updated 17.[facility] [employer] Social History Tobacco Use Types Packs/Day Years Used Date Smoking Tobacco: Never Assessed Sex and Gender Information Value Date Recorded Sex Assigned at Not on file Gender Identity Not on file Sexual Orientation Not on file Procedures * DERMATOPATHOLOGY(Performed 02/23/2024) * DERMATOPATHOLOGY(Performed 02/18/2022) * DERMATOPATHOLOGY(Performed 11/02/2019) Results * DERMATOPATHOLOGY (02/23/2024 4:07 PM DIAGRAM CLERK) Only the most recent of3 resultswithin the time period is included. Case Report Dermatopathology Report Case: [id number] Authorizing Provider: Jeannette Nova MD Collected: 02/23/2024 04:07 PM Ordering Location: [facility] - Received: 02/24/2024 02:27 PM DermPath Lab Pathologist: Asha Lowry MD Specimen: Skin, right forehead 4 12:21 PM DIAGRAM CLERK DERMATOPATHOLOGY LABORATORY Final Diagnosis Specimen A. 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 The specimen consists of 2 pieces of skin measuring 9x6x2 and 8x6x4 mm. Both pieces are submitted in 1 cassette. Jar 0. 4 12:21 PM [facility] DERMATOPATHOLOGY LABORATORY Microscopic Description Specimen A. SKIN, right forehead: There are typical adipocytes with minimal fibrous trabeculae. 4 12:21 PM [facility] DERMATOPATHOLOGY LABORATORY Disclaimer An external and internal positive and negative controls are appropriate for the histochemical, immunohistochemical and immunofluorescence stain(s) in this case (if any), except where stated explicitly. The performance characteristics of the stain(s) cited in this report were developed and its performance characteristic determined by the Dermatopathology Laboratory at [facility], directed by Dr. Tom Lowry. These tests need not be, and therefore are not, approved by the [place] Food and Drug Administration. The tests are used for clinical purposes. Billing Codes Specimen Charges Stain Charges 78009 1 4 12:21 PM [facility] DERMATOPATHOLOGY LABORATORY Embedded Images 4 12:21 PM [facility] DERMATOPATHOLOGY LABORATORY Pathology/Cytolo gy TISSUE SPECIMEN FROM SKIN / Unknown 02/23/2024 4:07 PM DIAGRAM CLERK 02/24/2024 2:27 PM DIAGRAM CLERK Jeannette Nova MD LAB - PATHOLOGY/CYTO LOGY ORDERABLES DERMATOPATHOLOGY LABORATORY [facility] - Department of Dermatology [address], [address] [phone]
--- OUTSIDE RECORDS SUMMARY | 2024-05-31 03:37 | XMS_ITS | Clinical Summary ---
Author Organization [facility] Address [address] [place] [address] Care Team Providers Care Sheet Metal Worker Name Role Phone Unavailable Primary Care Provider Unavailabl e Allergies Active Allergy Reactions Criticality Noted Date Comments Penicillins Hives High 09/26/2004 Sulfa (Sulfonamide Antibiotics) Hives High 09/06 Medications aspirin (CRALINE) 81 mg Oral Tab Take 1 Tab by mouth daily. 90 Tab 3 0 Active montelukast (SINGULAIR) 10 mg Oral tablet Take 1 Tab by mouth daily at bedtime. 30 Tab 3 1 Active fluticasone (FLONASE) 50 mcg/spray Both Nostril SpSn Administer 2 Sprays in each nostril daily. 1 Bottle 3 1 Active ERGOCALCIFEROL, VITAMIN D2, (VITAMIN D ORAL) Take 1 Cap by mouth daily. Active loratadine (CLARITIN) 10 mg tablet Take 1 Tab by mouth 1 time daily as needed. Active coenzyme Q10 (CO Q-10) Capsule Take 1 Cap by mouth daily. Active BELLA/INULIN/C-L OSE/MV-MN/FA (FIBER PLUS MULITVITAMIN ORAL) Take by mouth. Activ e MULTIVIT &MINERALS/FERROUS FUM (MULTI VITAMIN ORAL) Take 1 Tab by mouth daily. Active ezetimibe (ZETIA) 10 mg tablet Take 1 Tablet (10 mg) by mouth daily. 30 Tablet 6 5 Active losartan (COZAAR) 50 mg tablet Take 1 Tablet (50 mg) by mouth daily. 90 Tablet 0 6 Active pravastatin (PRAVACHOL) 40 mg tablet Take 1 Tablet (40 mg) by mouth Daily LATE. 90 Tablet 3 6 Active losartan (COZAAR) 25 mg tablet Take 1 Tablet (25 mg) by mouth daily. 90 Tablet 3 6 Active Active Problems Patient Care Coordination No te Formatting of this note migh t be different from the original. [id number] 07/18/13 Problem Noted Date Diagnosed Date Benign neoplasm of colon 02/19/2006 Family history of malignant neoplasm of prostate 02/19/2006 Other nonspecific abnormal serum enzyme levels 0 05/22/2005 Osteoarthrosis, unspecified whether generalized or localized, unspecified site 05/22/2005 Hyperlipidemia 10/02/2004 Esophageal reflux 09/26/2004 Unspecified disorder of prostate 09/26/2004 Resolved Problems Problem Noted Date Diagnosed Date Resolved Date Respiratory abnormality, unspecified 05/22/2005 09/16/2007 Screening for malignant neop lasm of the rectum 10/05/2004 09/16/2007 Routine general medical exam ination at a health care facility 09/26/2004 09/16/2007 Screening for thyroid disorder 09/26/2004 09/16/2007 Special screening for malign ant neoplasm of prostate 09/26/2004 09/16/2007 Screening for lipoid disorders 09/26/2004 09/16/2007 Need for prophylactic vaccin ation with tetanus-diphtheria (Td) 09/26/2004 09/16/2007 Special screening examinatio n for other specified viral diseases 09/26/2004 09/16/2007 Immunizations Immunization Administration Dates Next Due (ADACEL/BOOSTRIX)(10 YR UP) TDAP VACCINE, 0.5ML, IM 01/21/2014 (HAVRIX/VAQTA)(19 YRS UP) HE PATITIS A VACCINE ADULT DOSAGE 1 ML IMM 04/05/2005,10/03/2004 (PNEUMOVAX 23)(50 YRS UP) PN EUMOCOCCAL POLYSACCHARIDE (PPV23) 0.5 ML, IM 04/07/2003 (SHINGRIX)(50 YRS UP) ZOSTER VACCINE RECOMBINANT, 0.5 ML, IM 09/02/2018,07/08/2018 (TDVAX)(7 YRS UP) TETANUS AN D DIPHTHERIA TOXOIDS, ADSORBED (2 LF OF TETANUS TOXOID AND 2 LF OF DIPHTHERIA TOXOID), 0.5ML (PF), IM 01/05/2016,09/26/2004 Hepatitis A Vaccine 01/05/2016,11/22/2014 Influenza Seasonal Unspecifi ed Formulation IM 01/05/2016,11/22/2014,02/25/2013,01/23,12/19/2010,12/06/2009,12/23/2008 ,02/06/2008 Influenza Vaccine High Dose 65+ Yrs IM 1 04/14/2016,02/12/2017,01/09/2016,11/22 Influenza Vaccine Split 3+ Yrs IM 04/07/2003 Influenza Vaccine Tri Adjuva nted 65+ PF IM 01/06/2018 PNEUMOVAX (PPSV23) pneumococ [place]in[place] polysaccharide 23-valent Vaccine 02/12/2017 PREVNAR (PCV13) pneumococcal 13-valent conjugate Vaccine 11/22/2014 Family History Medical History Relation Name Comments Cancer Father prostate Diabetes Mother Heart Failure Mother Relation Name Status Comments Father Mother Social History Tobacco Use Types Packs/Day Years Used Date Smoking Tobacco: Never Smokeless Tobacco: Never Alcohol Use Standard Drinks/Week Comments Yes 0 (1 standard drink = 0.6 oz pur e alcohol) Sex and Gender Information Value Date Recorded Sex Assigned at Not on file 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 Gender Identity Not on file Sexual Orientation Not on file Last Filed Vital Signs Vital Sign Reading Time Taken Comments Blood Pressure 130/70 07/19/2015 3:46 PM CDT Pulse - - Temperature 36.5 C (97.7 F) 07/20/2008 2:22 PM CDT Respiratory Rate - - Oxygen Saturation - - Inhaled Oxygen Concentration - - Weight 86.6 kg (191 lb) 07/19/2015 3:46 PM CDT Height 167.6 cm (5' 6 ) 07/19/2015 3:46 PM CDT Body Mass Index 30.83 07/19/2015 3:46 PM CDT Plan of Treatment Health Maintenance Due Date Last Done Comments FIT-DNA Q 3 years 1994 Flex Sig/CT Colonography Q 5 years 1994 FIT/FOBT Q 1 year 08/09/2011 08/08/2010, , 09/26/2004 INFLUENZA VACCINE (#1) 2023 8, 02/12/2017, 02/12/2017, Additional history exists COLORECTAL SCREENING 03/09/2024 03/09/2014, 02/19/20 08 Colorectal Cancer Screening 03/09/2024 RSV VACCINE (60+ or ) (1 - 1-dose 75+ series) 2024 DTAP/TDAP/TD VACCINES (3 - T d or Tdap) 01/04/2026 01/05/2016, 01/21/2014, 09/26/2004 PNEUMOCOCCAL VACCINE 65+ YEARS Completed 1 04/14/2016, 11/22/2014, 04/07/2003 ZOSTER VACCINE Completed 09/02/2018, 07/08/2018 Procedures Procedure Name Priority Date/Time Associated Diagnosis Comments ENDOSCOPY, COLON, SCREENING Routine 03/09/2014 POC OCCULT BLOOD UP TO 3 CARDS Routine 08/08/2010 Benign neoplasm of colon from Last 3 Months or Most Recently Relevant to Health Maintenance Results * ENDOSCOPY, COLON, SCREENING (03/09/2014) us Abstract Provider GI PROCEDURE ORDERABLES Final Result [facility] * POC OCCULT BLOOD UP TO 3 CARDS (08/08/2010) OCCULT BLOOD #1 [facility] OCCULT BLOOD #2 [facility] OCCULT BLOOD #3 [facility] Stool specimen (specimen) Robin Roe MD POINT OF CARE TESTING Final R esult [facility] from Last 3 Months or Most Recently Relevant to Health Maintenance Insurance MEDICARE PART A AND B [employer] [place] [address]
--- OUTSIDE RECORDS SUMMARY | 2024-05-31 03:37 | XMS_ITS | Encounter Summary ---
Author Organization [facility] Address [address] [place] [address] Care Team Providers Care Corporate Director Of Pharmacy Name Role Phone Robin Roe MD Primary Care Provider Encounter Details Date Type Department Care Team (Late st Contact Info) Description 09/26/[address] 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
--- OUTSIDE RECORDS SUMMARY | 2024-05-31 03:37 | XMS_ITS | Encounter Summary ---
Author Organization [facility] Address 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 Gender Identity Not on file Sexual Orientation Not on file documented as of this encounter Last Filed Vital Signs Vital Sign Reading Time Taken Comments Blood Pressure 130/80 01/16/2005 1:45 PM CDT Pulse - - Temperature - - Respiratory Rate - - Oxygen Saturation - - Inhaled Oxygen Concentration - - Weight 76.2 kg (168 lb) 01/16/2005 1:45 PM CDT Height - - Body Mass Index - - documented in this encounter Plan of Treatment Not on file documented as of this encounter Visit Diagnoses Not on filedocumented in this encounter Care Teams Coin Counter And Wrapper Relationship Specialty Start Date End Date Robin Roe MD PCP - General 09/14/07 08/03/18 documented as of this encounter
--- OUTSIDE RECORDS SUMMARY | 2024-05-31 03:37 | XMS_ITS | Encounter Summary ---
Author Organization [facility] Address 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
--- OUTSIDE RECORDS SUMMARY | 2024-05-31 03:37 | XMS_ITS | Referral Summary ---
Author Organization [facility] Address [address] [place] [address] Care Team Providers Care Data Visualization Developer Name Role Phone Unavailable Primary Care Provider Unavailabl e Source Comments [facility],non-owned Affiliates and Associated Physician Practices is amultiple site organization consisting of ambulatory clinics and hospital sitesin [place], [place], [place] and [place]. This disclosure is being madepursuant to the Care Everywhere program and may not contain all information available regarding this patient. Last updated 17.[facility] imagoo Social History Tobacco Use Types Packs/Day Years Used Date Smoking Tobacco: Never Assessed Sex and Gender Information Value Date Recorded Sex Assigned at Not on file Gender Identity Not on file Sexual Orientation Not on file Plan of Treatment Not on file
--- OUTSIDE RECORDS SUMMARY | 2024-05-31 03:37 | XMS_ITS | Encounter Summary ---
Author Organization [employer] [facility] Address 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
--- OUTSIDE RECORDS SUMMARY | 2024-05-31 03:37 | XMS_ITS | Encounter Summary ---
Author Organization [facility] Address [address] [facility] [place] [address] Care Team Providers Care Systems Software Manager Name Role Phone Unavailable Primary Care Provider Unavailabl e Encounter Details Date Type Department Care Team (Late st Contact Info) Description 11/03/2019 Lab Requisition [facility] DermPath Lab [address] [place] [address] Ismael Leonard MD [address] [place] [address] Social History Tobacco Use Types Packs/Day Years Used Date Smoking Tobacco: Never Assessed Sex and Gender Information Value Date Recorded Sex Assigned at Not on file Gender Identity Not on file Sexual Orientation Not on file documented as of this encounter Plan of Treatment Not on file documented as of this encounter Procedures Procedure Name Priority Date/Time Associated Diagnosis Comments DERMATOPATHOLOGY Routine 11/02/2019 12:0 0 AM CDT documented in this encounter Results * DERMATOPATHOLOGY (11/02/2019 12:00 AM CDT) Case Report Dermatopathology Report Case: [id number] Authorizing Provider: Ismael Leonard MD Collected: 11/02/2019 12:00 AM Ordering Location: [facility] DermPath Lab Received: 11/03/2019 12:58 PM Pathologist: Asha Lowry MD Specimen: Skin, right med knee 0 5:19 PM CDT DERMATOPATHOLOGY LABORATORY Final Diagnosis Specimen A. 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 0 5:19 PM CDT DERMATOPATHOLOGY LABORATORY Gross Description Specimen A: Received is one formalin filled container labeled with the patient's name and designated right med knee. The specimen consists of a punch biopsy measuring 7x0n9pk, bisected. Jar 0. 0 5:19 PM CDT DERMATOPATHOLOGY LABORATORY Microscopic Description Specimen A. SKIN, right med knee: Within the dermis, there is a well-circumscribed aggregate of spindle shaped cells with hints of organization into fascicles and clefts between these fascicles . 0 5:19 PM CDT DERMATOPATHOLOGY LABORATORY Disclaimer An external and internal positive and negative controls are appropriate for the histochemical, immunohistochemical and immunofluorescence stain(s) in this case (if any), except where stated explicitly. The performance characteristics of the stain(s) cited in this report were developed and its performance characteristic determined by the Dermatopathology Laboratory at [facility], directed by Dr. Tom Lowry. These tests need not be, and therefore are not, approved by the [place] Food and Drug Administration. The tests are used for clinical purposes. Billing Codes Specimen Charges Stain Charges 65302 1 0 5:19 PM CDT DERMATOPATHOLOGY LABORATORY Embedded Images 0 5:19 PM CDT DERMATOPATHOLOGY LABORATORY Pathology/Cytolog y TISSUE SPECIMEN FROM SKIN / Unknown 11/02/2019 11/03/2019 12:58 PM CDT Ismael Leonard MD LAB - PATHOLOGY/CYTO LOGY ORDERABLES DERMATOPATHOLOGY LABORATORY [facility] - Department of Dermatology Fitness Center Attendant [place]/[address] [phone] documented in this encounter Visit Diagnoses Not on filedocumented in this encounter
--- OUTSIDE RECORDS SUMMARY | 2024-05-31 03:37 | XMS_ITS | Encounter Summary ---
Author Organization [facility] Address [address] [facility] [place] [address] Care Team Providers Care Fish Cleaner Name Role Phone Unavailable Primary Care Provider Unavailabl e Encounter Details Date Type Department Care Team (Late st Contact Info) Description 02/19/2022 Lab Requisition [facility] DermPath Lab [address] [place] [address] Ismael Leonard MD [address] [place] [address] Social History Tobacco Use Types [...] Priority Date/Time Associated Diagnosis Comments DERMATOPATHOLOGY Routine 02/18/2022 12:0 0 AM MANAGER CARD documented in this encounter Results * DERMATOPATHOLOGY (02/18/2022 12:00 AM MANAGER CARD) Case Report Dermatopathology Report Case: [id number] Authorizing Provider: Ismael Leonard MD Collected: 02/18/2022 12:00 AM Ordering Location: [facility] DermPath Lab Received: 02/19/2022 12:53 PM Pathologist: Melinda Platt MD Specimen: Skin, right rastafari 2 3:14 PM MANAGER CARD DERMATOPATHOLOGY LABORATORY Addendum 1 PRESENT AT [facility] 02 2 3:14 PM MANAGER CARD DERMATOPATHOLOGY LABORATORY Addendum electronically signed by Melinda Platt MD on 02/26/2022 at 3:14 PM Final Diagnosis Specimen A. 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 The specimen consists of a shave biopsy measuring 44s52d7 mm. Jar 0. 2 3:14 PM [facility] DERMATOPATHOLOGY LABORATORY Microscopic Description Specimen A. SKIN, right rastafari: There is a cellular, dermal based tumor comprised of spindle, oval, and polygonal cells with pleomorphic and polymorphic nuclei. Multinucleated giant cells and mitotic figures are present. The hematoxylin and eosin stain is reviewed and the histologic finding are concerning for malignant neoplasm; immunohistochemical stains are performed to classify this malignancy. The tumor stains strongly and diffusely with CD10 and focally with smooth muscle actin. It is negative for p63, MART-1/Melan A, SOX-10, desmin, ERG and CD34. Mib-1 reveals a focally increase proliferative index within the spindled cells. 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 On superficial biopsy, these two neoplasms have nearly identical histopathological features with the main distinction based on extent of tumor involvement. Clinical correlation is recommended. 2 3:14 PM [facility] DERMATOPATHOLOGY LABORATORY Disclaimer An external and internal positive and negative controls are appropriate for the histochemical, immunohistochemical and immunofluorescence stain(s) in this case (if any), except where stated explicitly. The performance characteristics of the stain(s) cited in this report were developed and its performance characteristic determined by the Dermatopathology Laboratory at [facility], directed by Dr. Tom Lowry. These tests need not be, and therefore are not, approved by the [place] Food and Drug Administration. The tests are used for clinical purposes. Billing Codes Specimen Charges Stain Charges 48100 1 66680 81832 71630 61776 15366 37896 89435 87352 40485 1 1 1 1 1 1 1 1 1 2 3:14 PM MANAGER CARD DERMATOPATHOLOGY LABORATORY Embedded Images 2 3:14 PM MANAGER CARD DERMATOPATHOLOGY LABORATORY Pathology/Cytolog y TISSUE SPECIMEN FROM SKIN / Unknown 02/18/2022 02/19/2022 12:53 PM MANAGER CARD Ismael Leonard MD LAB - PATHOLOGY/CYTO LOGY ORDERABLES Performing Organization Address City/State/[facility] Co de Phone Number DERMATOPATHOLOGY LABORATORY [facility] - Department of Dermatology [facility] Specialized Medicine [address] [place] [address], [address] [phone] documented in this encounter Visit Diagnoses Not on filedocumented in this encounter
--- OUTSIDE RECORDS SUMMARY | 2024-05-31 03:37 | XMS_ITS | Encounter Summary ---
Author Organization [facility] Address [address] [place] [address] Care Team Providers Care Fixed Interest Dealer Name Role Phone Unavailable Primary Care Provider Unavailabl e Encounter Details Date Type Department Care Team (Late st Contact Info) Description 02/23/2024 Lab Requisition [facility] - DermPath Lab [address] [place] [address] Jeannette Nova MD [address] [place] [address] Social History Tobacco Use Types Packs/Day Years Used Date Smoking Tobacco: Never Assessed Sex and Gender Information Value Date Recorded Sex Assigned at Not on file Gender Identity Not on file Sexual Orientation Not on file documented as of this encounter Plan of Treatment Not on file documented as of this encounter Procedures Procedure Name Priority Date/Time Associated Diagnosis Comments DERMATOPATHOLOGY Routine 02/23/2024 4:07 PM FARM INSTRUCTOR documented in this encounter Results * DERMATOPATHOLOGY (02/23/2024 4:07 PM FARM INSTRUCTOR) Case Report Dermatopathology Report Case: [id number] Authorizing Provider: Jeannette Nova MD Collected: 02/23/2024 04:07 PM Ordering Location: [facility] - Received: 02/24/2024 02:27 PM DermPath Lab Pathologist: Asha Lowry MD Specimen: Skin, right forehead 4 12:21 PM FARM INSTRUCTOR DERMATOPATHOLOGY LABORATORY Final Diagnosis Specimen A. 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 The specimen consists of 2 pieces of skin measuring 9x6x2 and 8x6x4 mm. Both pieces are submitted in 1 cassette. Jar 0. 4 12:21 PM [facility] DERMATOPATHOLOGY LABORATORY Microscopic Description Specimen A. SKIN, right forehead: There are typical adipocytes with minimal fibrous trabeculae. 4 12:21 PM [facility] DERMATOPATHOLOGY LABORATORY Disclaimer An external and internal positive and negative controls are appropriate for the histochemical, immunohistochemical and immunofluorescence stain(s) in this case (if any), except where stated explicitly. The performance characteristics of the stain(s) cited in this report were developed and its performance characteristic determined by the Dermatopathology Laboratory at [facility], directed by Dr. Tom Lowry. These tests need not be, and therefore are not, approved by the [place] Food and Drug Administration. The tests are used for clinical purposes. Billing Codes Specimen Charges Stain Charges 33026 1 4 12:21 PM [facility] DERMATOPATHOLOGY LABORATORY Embedded Images 4 12:21 PM [facility] DERMATOPATHOLOGY LABORATORY Pathology/Cytolo gy TISSUE SPECIMEN FROM SKIN / Unknown 02/23/2024 4:07 PM FARM INSTRUCTOR 02/24/2024 2:27 PM FARM INSTRUCTOR Jeannette Nova MD LAB - PATHOLOGY/CYTO LOGY ORDERABLES DERMATOPATHOLOGY LABORATORY [facility] - Department of Dermatology [address], [address] [phone] documented in this encounter Visit Diagnoses Not on filedocumented in this encounter
--- OUTSIDE RECORDS SUMMARY | 2024-05-31 03:37 | XMS_ITS | Encounter Summary ---
Author Organization [facility] Address [address] [place] [address] Care Team Providers Care Duplicate Maker Name Role Phone Robin Roe MD Primary Care Provider [phone] Encounter Details Date Type Department Care Team (Late st Contact Info) Description 02/19/2006 Orders Only [facility] Internal Medicine [address] [address] Robin Roe MD [address] [place] [phone] Social History Tobacco Use Types Packs/Day Years Used Date Smoking Tobacco: Never Assessed Sex and Gender Information Value Date Recorded Sex Assigned at Not on file Legal Sex Male 5:24 AM SIMONIZER Gender Identity Not on file Sexual Orientation Not on file documented as of this encounter Progress Notes * Robin Roe MD - 01/20/2008 12:25 AM CDT WEIGHT: 178lbs BLOOD PRESSURE: 118/72 Right Arm Sitting NURSE NAME: Timoteo [place] N CHIEF COMPLAINT Patient here for follow up hyperlipidemia. HISTORY: HISTORY: 272.4-HYPERLIPIDEMIA The patient is tolerating the medications. The patient is not compliant with the low saturated fat diet. The patient's most recent LDL was not at goal. 602.9-OTHER DISORDERS OF PROSTATE no sx 790.5-ABNORMAL LIVER ENZYMES reviewed stable V16.42-FAMILY HISTORY PROSTATE CANCER father had ROS: ENDOCRINE: No heat or cold intolerance, no excessive thirst. CARDIAC: No chest pain, palpitations, orthopnea, dyspnea on exertion, or paroxysmal nocturnal dyspnea. : No dysuria or hematuria. GI: No abdominal pain, nausea, vomiting, diarrhea, constipation, melena, or hematochezia. PAST MEDICAL HISTORY: MEDICAL: No significant history of medical diseases. CURRENT MEDICATIONS: Patient is currently on no medication. ALLERGIES/ADVERSE REACTIONS: Penicillins, sulfa drugs. FAMILY HISTORY: FATHER: The father is living.82, Prostate cancer MOTHER: The mother is .77, IDDM, Diabetes, Heart attack, CHF, High cholesterol, Arthritis SIBLINGS: Two siblings. SOCIAL HISTORY: MARITAL HISTORY: , living with spouse. LIVING WILL: The patient has a living will. TOBACCO USE: Has no significant smoking history. 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 EXERCISES: The patient exercises. DIET: Follows no specific diet. SAFETY ISSUES: Uses seat belts. PHYSICAL EXAMINATION: CONSTITUTIONAL: GENERAL APPEARANCE: Healthy appearing [...] hepatosplenomegaly, tenderness or nodularity. Kidneys not palpable. RECTAL: Rectal exam reveals no masses or hemorrhoids, sphincter tone is normal. STOOL/HEMOCCULT: Stool is hemoccult negative. Stool is normal. GENITOURINARY: PROSTATE: 1+ ENLARGED, smooth. ASSESSMENT/PLAN: 272.4-HYPERLIPIDEMIA discussed diet, and exercise,cont med, may need to inc if not improved 602.9-OTHER DISORDERS OF PROSTATE inc in psa, has fhx recheck in 6 mo if inc may need bx, discussed LAB ORDERS: Order number: [id number] Test Ordered: HEMOCCULT SINGLE 99508 790.5-ABNORMAL LIVER ENZYMES stable, reviewed LAB ORDERS: 6 [place] Order number: [id number] Test Ordered: COMPREHENSIVE METABOLIC PANEL W/ GLOMERULAR FILTRATION RATE, ESTIMATED (EGFR) 44277 Order number: [id number] Test Ordered: LIPID PANEL 7600 Order number: [id number] Test Ordered: PSA 5363 211.3-COLON POLYP(S) discussed, no sx, repeat colonoscopy 2 years RETURN VISIT : Patient instructed to return in 6 months. Electronically Signed by: Robin Roe MD on Sunday, February 19, 2006 documented in this encounter Plan of Treatment Not on file documented as of this encounter Visit Diagnoses Not on filedocumented in this encounter Care Teams Duplicate Maker Relationship Specialty Start Date End Date Robin Roe MD PCP - General 09/14/07 08/03/18 documented as of this encounter
--- OUTSIDE RECORDS SUMMARY | 2024-05-31 03:37 | XMS_ITS | Encounter Summary ---
Author Organization [facility] Address 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
[2024-05-31 08:28] VITALS: BP 136/67; PULSE 69; RESP 18; TEMP 36.1; O2SAT 100
[2024-05-31] MEDS: LACTATED RINGERS 1,000 ML 150 ML IV CONT (08:39)
[2024-05-31 08:41] LABS: Glucose Point of Care 110 mg/dl (65-105)
--- NOTE | 2024-05-31 08:41 | WPDANESEPPF ---
Anes - Initial Pre Proc Eval Procedure: Operation Date: 05/31/24 09:30 Proposed Procedures p Colonoscopy - Eloy Scott MD Date/Time: 05/31/24 08:41 Surgeon: Eloy Scott MD Pre Op Diagnosis: personal hx of colon polyps Patient Data Age: 73 Gender: M Height: 1.68 m Weight: 77.1 kg Last Vital Signs Temp 97 F L 05/31/24 08:28 Pulse 69 05/31/24 08:28 Resp 18 05/31/24 08:28 BP 136/67 05/31/24 08:28 Pulse Ox 100 05/31/24 08:28 O2 Del Method Room Air 05/31/24 08:28 Allergies Allergy/AdvReac Type Severity Reaction Status Date / Time Penicillins Allergy Intermediate Hives, RASH Verified 05/31/24 08:24 Sulfa (Sulfonamide Allergy Intermediate Rash Verified 05/31/24 08:24 Antibiotics) Home Medications ?Medication ?Instructions ?Recorded ?Confirmed ?Type cholecalciferol (vitamin D3) 125 5,000 unit PO DAILY 02/18/19 05/31/24 History mcg (5,000 unit) tablet (Vitamin D3) coenzyme Q10 100 mg capsule 100 mg PO DAILY 02/18/19 05/31/24 History (CoQ-10) diphenhydramine HCl 25 mg capsule 25 mg PO BID PRN Sinus Symptoms 02/18/19 05/24/24 History (Benadryl) multivitamin (Multiple Vitamins 1 tablet PO DAILY 02/18/19 05/31/24 History tablet) vitamin E 268 mg (400 unit) capsule 400 unit PO DAILY 02/18/19 05/31/24 History omega 3,6,9 combination no.7 92 mg 92 mg PO DAILY 10/18/19 05/31/24 History (43 mg-22 [id number]) chew tablet diphenhydramine 25 1 tablet PO HS PRN Pain 01/17/21 05/24/24 History mg-acetaminophen 500 mg tablet (Tylenol PM Extra Strength) potassium 99 mg tablet 99 mg PO DAILY 01/17/21 05/31/24 History flaxseed oil 1,000 mg capsule 1,300 mg PO DAILY 01/19/21 05/31/24 History magnesium 200 mg tablet 400 mg PO DAILY 01/19/21 05/31/24 History propylene glycol 0.6 % eye drops 1 drp EACH EYE DAILY 01/19/21 05/24/24 History (Systane Balance) loratadine 10 mg capsule 10 mg PO DAILY #90 caps 06/17/22 05/31/24 Rx albuterol sulfate 90 mcg/actuation 1 - 2 puff inhalation Q4-6H PRN 04/14/23 05/24/24 Rx aerosol inhaler shortness of breath or wheezing #25.5 grams montelukast 10 mg tablet 10 mg PO DAILY 90 days #90 tabs 07/14/23 05/24/24 Rx (Singulair) omeprazole 20 mg capsule,delayed 20 mg PO DAILY PRN Indigestion #90 07/14/23 05/24/24 Rx release caps rosuvastatin 10 mg tablet (Crestor) 10 mg PO DAILY #90 tabs 07/14/23 05/31/24 Rx amlodipine 5 mg tablet 5 mg PO DAILY #90 tabs 12/01/23 05/31/24 Rx metformin 500 mg tablet 500 mg PO BIDWMEAL #180 tabs 12/16/23 05/31/24 Rx tirzepatide 7.5 mg/0.5 mL 7.5 mg (0.5 mL) subcut WEEKLY #2 mL 02/23/24 05/24/24 Rx subcutaneous pen injector azelastine 137 mcg (0.1 %) nasal 2 spray intranasal Q12H PRN 04/01/24 05/24/24 Rx spray Congestion #90 mL fluticasone 250 mcg-salmeterol 50 See Rx Instructions .Route 04/26/24 05/31/24 Rx mcg/dose blistr powdr for .COMPLEX #180 grams inhalation (Wixela Inhub) losartan 100 mg tablet 100 mg PO DAILY #90 tabs 05/18/24 05/31/24 Rx fluticasone propionate 50 1 spray intranasal BID #48 grams 05/21/24 05/31/24 Rx mcg/actuation nasal spray,suspension Laboratory Tests 05/31/24 08:37 POC Capillary Glucose 110 H mg/dl (65-105) Patient hx anesthesia problems: none Family hx anesthesia problems: none Results Review: All pre-operative results and documents have been reviewed as part of the pre-operative evaluation. [facility] Past Medical History Medical History Central sleep apnea Basal cell carcinoma GERD (gastroesophageal reflux disease) Obesity Asthma Hypertension Surgical History Surgical History S/P rotator cuff repair Family History Family History Father Family history of Alzheimer's disease Mother Diabetes mellitus Heart disease Grandparent Diabetes mellitus Heart disease Grandparent Cerebrovascular accident Social History Social History Smoking status: Never smoker Second hand tobacco smoke exposure: No Alcohol intake: current Drinks per week: 10 Substance use: never Substance use type: does not use Lack of Transportation: No Lack of Food: Never True Current Housing: I Have Housing Concerned About Future Housing: No Difficulty Paying Gas/Electric Bills: No Difficulty Paying for Meds: No Currently Unemployed: No Education: Master's Degree or Higher Living arrangements: with family Additional living arrangements comments: Gender identity (if verbalized by the patient): Male Sexual Orientation (if Verbalized by the Patient): Straight or Heterosexual Spiritual care concerns: No Anes - Eval Final PreProcedure Day of Procedure 05/31/24 08:41 Patient weight: overweight Lungs: normal air movement Airway: Mallampati scale class II Neurological: alert and oriented Last oral intake: >/= 8 hours ASA classification: III Emergent: no Anesthetic plan: proceed Anesthesia type and monitoring: general GIVS and standard monitoring Results Review: All pre-operative results and documents have been reviewed as part of the pre-operative evaluation. HTN, hyperlipidemia, MARVIN on CPAP, DM. Informed Consent: The patient's anesthetic plan and its attendant risks and benefits were discussed with the patient/family/POA. Questions were solicited and answers provided to the satisfaction of the patient/family/POA.
[2024-05-31 08:58] VITALS: BP 108/60; PULSE 66; RESP 16; O2SAT 98
[2024-05-31 09:08] VITALS: BP 108/57; PULSE 62; RESP 18; O2SAT 99
[2024-05-31 09:18] VITALS: BP 124/59; PULSE 64; RESP 18; O2SAT 100
== END 2024-05-31 09:26 | disposition home or self-care (01) ==
PROVIDERS: PCP Internal Medicine; Visit Provider Internal Medicine Gastroenterology
PROC: 0DJD8ZZ Inspection of Lower Intestinal Tract, Via Natural or Artificial Opening Endoscopic (ICD-10-PCS; CPT 45378; principal; 2024-05-31 09:30)
DX: Z12.11 Encounter for screening for malignant neoplasm of colon (principal); D12.2 Benign neoplasm of ascending colon; D12.3 Benign neoplasm of transverse colon; K64.8 Other hemorrhoids; Z79.85 Long-term (current) use of injectable non-insulin antidiabetic drugs; Z79.84 Long term (current) use of oral hypoglycemic drugs
CPT/HCPCS: 45385; 82948; 88305; J2704; J7120